=== PATIENT | female | born 1935 | race Caucasian/White ===

== ENCOUNTER → 2018-04-11 12:55 | Outpatient (CLI) | payer MEDICARE, OTHER, SELFPAY ==
--- NOTE | 2018-04-11 | OV.WND_ITS ---
Progress Note Details Patient Name: Martha Norwood Patient Number: [id number] PatientPatientDate: 04/11/2018 Clinician: Kim Saleem Physician / [employer] Building [employer] Designer: Yuri Marin SUBJECTIVE Chief Complaint This information was obtained from the patient Non-healing wound to l lower leg. Allergies codeine (Severity: Severe), latex (Reaction: rash), sulfabenzamide (Severity: Severe, Reaction: hallucinations) HPI This information was obtained from the patient 04/11/18. Seen by Dr. Marin. The patient returns to clinic with recurrence of the previously healed left lower leg venous ulcers that she feels maybe started about one month ago. She reports drainage and some pain at the site of the two ulcers and has not been on antibiotics recently nor been wearing a compression stocking despite having chronic venous hypertension in the leg. She does not report fevers or feeling otherwise. 10/12/17. Seen by Dr. Marin. The patient does not report pain or increased drainage associated with the chronic left or righ lower leg nonpressure ulcers since her last visit. The patient was started on Augmentin at her last visit for cellulitis associated with the left lower leg ulcers however reports nausea when taking it and stopped after 3 doses. She does not report a rash or other allergic type symptoms. 10/05/17. Seen by Dr. Marin. The patient reports new blisters that are pain over the anterior right lower leg associated with her chronic nonpressure ulcers. She's applying topical mupiricin but is not currently on antibiotics. 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 09/21/[address] Marin. The patient does not report pain or increased drainage associated with the chronic left or righ lower leg nonpressure ulcers since her last visit. 09/14/17. Seen by Dr. Marin. The patient does not report pain or increased drainage associated with the chronic left lower leg nonpressure ulcer however her daughter reports a new ulcer over the right lower leg she feels may be infected. She's applying topical gentamicin to the site however does not feel it's improving. 08/25/17. Seen by Dr. Marin. Patient does not report pain or increased drainage associated with the chronic left lower leg nonpressure ulcers since her last visit. She continues to apply topical gentamicin to treat the chronic staph infection also. 08/16/17. Seen by Dr. Marin. The patient does not report significant pain nor drainage associated with the chronic left lower leg non-pressure ulcer. She's applying topical gentamicin as recommended after recent wound culture grew MSSA. 08/02/17. Seen by Benedict Orta PA-C. The patient returns to our clinic with a new wound to her left anterior lower leg. She reports that she is allowing shower water into the wound and it has not improved in the 2 months it is been present. 09/07/16 Seen by Benedict Orta PA-C. The patient reports continued pain and drainage from the left arm ulcer of uncertain cause. Her referral to dermatology to assess this lesions for malignancy is in process. 08/31/16 Seen by Benedict Orta PA-C. The patient reports that her right lower leg ulcer has had no drainage since her last dressing change. She has had continued pain and drainage from her left arm ulcer. Of note, the patient does not see dermatology for yearly skin checks. 08/23/16 Seen by Benedict Orta PA-C. The patient reports that her right leg ulcer has had stable drainage since her last evaluation. Her left arm ulcer, which begain spontaneously 2 weeks ago has had stable drainage with a sharp, non-radiating pain of 1/10 being described which increases to 6/10 when debridement in attempted. She has not had any associated fever or chills. 08/16/16 Seen by Benedict Orta PA-C. The patient reports stable drainage from her right leg ulcer in the past week. She reports a new ulcer on her left arm that began spontaneously and has been continuously present for 1 week. It started as a raised dry skin abnormality and evolved into an open ulcer that has been draining clear fluid. She has not had associated trauma to the area. 08/09/16 Seen by Benedict Orta PA-C. The patient reports stable drainage from her right lower leg ulcer since her last evaluation. 08/02/16. Seen by Dr. Marin. The patient reports minimal pain and drainage associated with the chronic right lower leg non-pressure ulcer since her last visit. 07/26/16 Seen by Benedict Orta PA-C. The patient reports stable drainage from her right lower leg ulcer since her last evaluation. 07/19/16 Seen by Benedict Orta PA-C. The patient reports continued drainage from her right lower leg ulcer with no fever or chills reported. 07/12/16. Seen by Dr. Marin. The patient reports decreased drainage and pain associated with the chronic right lower leg non-pressure ulcer since her last visit and in general feels it's much smaller than at time of her last visit. Following a course of cipro she continues to apply topical gentamicin ointment to treat the recent MRSA and Pseudomonas positive wound culture. 06/28/16 Seen by Benedict Orta PA-C. The patient reports that she was not able to tolerate her oral Cipro any better than the levaquin that gave her upper GI distress. She reports decreased drainage from her right lower leg ulcer. 06/22/16 Seen by Benedict Orta PA-C. The patient reports continued drainage from her right lower leg ulcer since her last evaluation. She has not had fever or chills. She has thrown up her levaquin on 2 occasions and kept it down for the other doses but did have nausea. 06/15/16. Seen by Dr. Marin. The patient is new to our clinic and presents with a right lower leg chronic, non-pressure ulcer that started as a trauma wound after hitting her leg on a piece of furniture about 2 months ago. She reports intermittent pain and persistent drainage despite treating Pseuodmona, Staph, and Strep that were cultured from the ulcer with oral antibiotics. She does not report fevers, increased leg swelling, or feeling unwell in general and does not have a history of diabetes or report symptoms consistent with clinically significant PAD. Family History This information was obtained from the patient Cancer - Mother, Heart Disease - Father, Other - Maternal Grandparents Social History This information was obtained from the patient Never smoker, Alcohol Use - Cocktail every night, Caffeine Use - 2 cups daily, Children - 2 children, Lives in - Home alone, Marital Status - , Retired Past Medical History This information was obtained from the patient Patient has a medical history of: Arthritis Asthma Osteopenia Necrosis of left hip post pinning Chronic macrocytic anemia Gout Hypertension Hip Fracture Post traumatic osteoarthritis Hepatitis A MRSA Femer fractures Vitamin D deficiency Hyperlipidemia Surgical History This information was obtained from the patient Patient has a surgical history of: Hip Pinning Appendectomy Rhinoplasty Tonsillectomy Cataract extration Complaints and Symptoms This information was obtained from the patient Patient complains of: General Notes: I have reviewed and concur with the Review of Systems and Past Family Social History documents completed by the clinician, I have reviewed and concur with the Wound Assessment document completed by the clinician Gastrointestinal (GI): Nausea / Vomiting Integumentary (Hair/Skin/Nails): Open Sore Prior Wound History: Bleeding, Drainage, Erythema, Pain Patient denies complaints or symptoms related to: Cardiovascular (Central): Irregular heart beat Cardiovascular (Central/Peripheral): Intermittent Claudication, Lower extremity (leg) resting pain, Lower extremity (leg) swelling Constitutional Symptoms (General Health): Chills, Fever Ear/Nose/Mouth/Throat: Hearing Loss / Aid Hematologic/Lymphatic: Bleeding / Clotting Disorders, Bleeding Tendency Musculoskeletal: Assistive Devices, Muscle Weakness Neurological: Loss of Protective Sensation Prior Wound History: Malodor Psychiatric: Depression, Memory Loss Respiratory: Oxygen Use, Shortness of Breath General Notes: Up to date Medications Augmentin 875 mg-125 mg tablet oral tablet oral twice daily for 7 days for cellulitis OBJECTIVE Constitutional BP elevated; Afebrile; Alert and in no distress. Well developed. Alert. Clean appearing.. Height/Length: 66 in (167.64 cm), Weight: 129.6 lbs (58.91 kgs), BMI: 20.9, Temperature: 98.1 ?F (36.72 ?C), Pulse: 73 bpm, Respiratory Rate: 16 breaths/min, Blood Pressure: 146/64 mmHg, Pulse Oximetry: 99 %. Ears, Nose, Mouth, and Throat: No clinically significant hearing loss on informal examination. Respiratory: No respiratory distress. Even respirations and without use of accessory muscles.. Cardiovascular: 1+ left lower extremity edema. Integumentary (Hair, Skin) Mild periwound erythema with warmth; considerable overlying yellow dried drainage. Refer to appropriate clinician wound documentation for this visit; distal left lower leg ulcer extends to subcut with base partially covered with red friable granulation, remainder fibrin and slough; proximal left lower leg ulcer extends to dermis with red granular base. Wound #5 Left, Distal, Anterior Leg is a chronic Partial Thickness Atypical and has received a status of Not Healed. Initial wound encounter measurements are 6.5cm length x 5.5cm width x 0.2cm depth, with an area of 35.75 sq cm and a volume of 7.15 cubic cm. No tunneling has been noted. No sinus tract has been noted. No undermining has been noted. There is a moderate amount of sero-sanguineous drainage noted which has no odor. The patient reports a wound pain of level 0/10. The wound margin is attached. Wound bed has Yes epithelialization, No eschar, Yes slough, Yes bright red, firm granulation. The periwound skin texture is normal. The periwound skin moisture is normal. The periwound skin color is normal. The temperature of the periwound skin is WNL. Periwound skin does not exhibit signs or symptoms of infection. Local Pulse is Palpable. Wound #6 Left, Proximal, Anterior Leg is a chronic Partial Thickness Atypical and has received a status of Not Healed. Initial wound encounter measurements are 4cm length x 3cm width x 0.1cm depth, with an area of 12 sq cm and a volume of 1.2 cubic cm. No tunneling has been noted. No sinus tract has been noted. No undermining has been noted. There is a moderate amount of sero-sanguineous drainage noted which has no odor. The patient reports a wound pain of level 0/10. The wound margin is attached. Wound bed has Yes epithelialization, No eschar, Yes slough, Yes bright red, firm granulation. The periwound skin texture is normal. The periwound skin color is normal. The periwound skin exhibited: Dry/Scaly. The temperature of the periwound skin is WNL. Periwound skin does not exhibit signs or symptoms of infection. Local Pulse is Palpable. Neurological: Cranial nerves grossly intact with symmetric function normal by informal observation.. ASSESSMENT Active Problems ICD-10 (Encounter Diagnosis) L97.822 - Non-pressure chronic ulcer of other part of left lower leg with fat layer exposed (Encounter Diagnosis) L97.821 - Non-pressure chronic ulcer of other part of left lower leg limited to breakdown of skin (Encounter Diagnosis) I87.312 - Chronic venous hypertension (idiopathic) with ulcer of left lower extremity (Encounter Diagnosis) L03.116 - Cellulitis of left lower limb PROCEDURES Wound #5 Wound #5 (Atypical) is located on the left, distal, anterior leg. A skin/ subcutaneous tissue level surgical debridement with a total area debrided of 35.75 sq cm was performed by Yuri Marin MD. Subcutaneous was removed along with devitalized tissue: exudate and slough. The following instrument(s) were used: curette. Pain control was achieved using 4% Lido. A time out was conducted prior to the start of the procedure. A minimal amount of bleeding was controlled with n/a. The procedure was tolerated well with a pain level of 0 throughout and a pain level of 0 following the procedure. Post Debridement Measurements: 6.5cm length x 5.5cm width x 0.3cm depth; with an area of 35.75 sq cm and a volume of 10.725 cubic cm; Wound #6 Wound #6 (Atypical) is located on the left, proximal, anterior leg. A selective debridement with a total area debrided of 12 sq cm was performed by Yuri Marin MD. to remove devitalized tissue: exudate. The following instrument(s) were used: curette. Pain control was achieved using 4% Lido. A time out was conducted prior to the start of the procedure. A minimal amount of bleeding was controlled with n/a. The procedure was tolerated well with a pain level of 0 throughout and a pain level of 0 following the procedure. Post Debridement Measurements: 4cm length x 3cm width x 0.1cm depth; with an area of 12 sq cm and a volume of 1.2 cubic cm; Additional Information Muscle fascia or bone removed and sent to pathology?: No PLAN Wound Orders: Wound #5 Left, Distal, Anterior Leg Anesthetic Topical Xylocaine to wound bed. Cleanser Cleanse Wound: - Normal Saline in clinic. May use distilled water at home. Topical Treatments Antibiotic/Antimicrobial Ointment/Cream. - Gentamicin Dressings Primary dressing: - Bordered Foam Change Dressing: - Every other day Wound #6 Left, Proximal, Anterior Leg Anesthetic Topical Xylocaine to wound bed. Cleanser Cleanse Wound: - Normal Saline in clinic. May use distilled water at home. Topical Treatments Antibiotic/Antimicrobial Ointment/Cream. - Gentamicin Dressings Primary dressing: - Bordered Foam Change Dressing: - Every other day Additional Orders: Follow-Up Appointments Return Appointment: - - One week Other information: If you develop fever, chills, increased pain, drainage, redness or swelling please call our office. If after hours, respond to the ER. Should you experience any significant changes in your wound(s) or have any questions regarding your home care instructions please contact the wound center @ [phone]. If after hours, contact your primary care physician or go to the hospital emergency room. Scribing Attestation I attest, as the nurse, that I scribed these orders for the physician. Laboratory: Culture Wound, Culture Wound General Notes: Please clam picker antibiotics and take as prescribed. We will call with any positive wound cultures requiring a change in medication. I've reviewed the clinician's documentation and agree with the evaluation and plan as written. In addition the patient's ulcers demonstrate evidence of non-viable devitalized tissue and they will continue to benefit from sharp debridement to help promote granulation and expedite healing. Also, I've started the patient empirically on Augmentin and will adjust antibiotics pending the culture results. We'll also restart compression therapy once the infection is appropriately treated. Electronic Signature(s) Signed By: Date: Yuri Marin MD 04/12/2018 08:37:45 Entered By: Yuri Marin on 04/12/2018 08:24:25
== END ==
PROVIDERS: PCP Family Medicine; Visit Provider Internal Medicine
DX: I87.312 Chronic venous hypertension (idiopathic) with ulcer of left lower extremity (principal); L97.822 Non-pressure chronic ulcer of other part of left lower leg with fat layer exposed; L97.821 Non-pressure chronic ulcer of other part of left lower leg limited to breakdown of skin; L08.9 Local infection of the skin and subcutaneous tissue, unspecified
CPT/HCPCS: 11042; 11045; 87070; 87075; 87077; 87147; 87186; 87205; 97597

== ENCOUNTER → 2018-04-19 14:25 | Outpatient (CLI) | payer MEDICARE, OTHER, SELFPAY ==
--- NOTE | 2018-04-19 | OV.WND_ITS ---
Progress Note Details Patient Name: Martha Norwood Patient Number: [id number] PatientPatientDate: 04/19/2018 Clinician: Kim Saleem Clinician Cosigner: Luh Fry Physician / Senior Technical Project Manager: Yuri Marin SUBJECTIVE Chief Complaint This information was obtained from the patient Non-healing wound to l lower leg. Allergies codeine (Severity: Severe), latex (Reaction: rash), sulfabenzamide (Severity: Severe, Reaction: hallucinations) HPI This information was obtained from the patient 04/19/18. Seen by Dr. Marin. The patient reports some mild pain but not drainage associated with the left lower leg venous ulcers and she's completed her course of Augmentin that was treating an associated cellulitis without reporting adverse side effects. 04/11/18. Seen by Dr. Marin. The patient returns to clinic with recurrence of the previously healed left lower leg venous ulcers that she feels maybe started about one month ago. She reports drainage and some pain at the site of the two ulcers and has not been on antibiotics recently nor been wearing a compression stocking despite having chronic venous hypertension in the leg. She does not report fevers or feeling otherwise. 10/12/17. Seen by Dr. Marin. The patient does not report pain or increased drainage associated with the chronic left or righ lower leg nonpressure ulcers since her last visit. The patient was started on Augmentin at her last visit for cellulitis associated with the left lower leg ulcers however reports nausea when taking it and stopped after 3 doses. She does not report a rash or other allergic type symptoms. 10/05/17. Seen by Dr. Marin. The patient reports new blisters that are pain over the anterior right lower leg associated with her chronic nonpressure ulcers. She's applying topical mupiricin but is not currently on antibiotics. 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 09/21/[address] Marin. The patient does not report pain or increased drainage associated with the chronic left or righ lower leg nonpressure ulcers since her last visit. 09/14/17. Seen by Dr. Marin. The patient does not report pain or increased drainage associated with the chronic left lower leg nonpressure ulcer however her daughter reports a new ulcer over the right lower leg she feels may be infected. She's applying topical gentamicin to the site however does not feel it's improving. 08/25/17. Seen by Dr. Marin. Patient does not report pain or increased drainage associated with the chronic left lower leg nonpressure ulcers since her last visit. She continues to apply topical gentamicin to treat the chronic staph infection also. 08/16/17. Seen by Dr. Mrain. The patient does not report significant pain nor drainage associated with the chronic left lower leg non-pressure ulcer. She's applying topical gentamicin as recommended after recent wound culture grew MSSA. 08/02/17. Seen by Benedict Orta PA-C. The patient returns to our clinic with a new wound to her left anterior lower leg. She reports that she is allowing shower water into the wound and it has not improved in the 2 months it is been present. 09/07/16 Seen by Benedict Orta PA-C. The patient reports continued pain and drainage from the left arm ulcer of uncertain cause. Her referral to dermatology to assess this lesions for malignancy is in process. 08/31/16 Seen by Benedict Orta PA-C. The patient reports that her right lower leg ulcer has had no drainage since her last dressing change. She has had continued pain and drainage from her left arm ulcer. Of note, the patient does not see dermatology for yearly skin checks. 08/23/16 Seen by Benedict Orta PA-C. The patient reports that her right leg ulcer has had stable drainage since her last evaluation. Her left arm ulcer, which begain spontaneously 2 weeks ago has had stable drainage with a sharp, non-radiating pain of 1/10 being described which increases to 6/10 when debridement in attempted. She has not had any associated fever or chills. 08/16/16 Seen by Benedict Orta PA-C. The patient reports stable drainage from her right leg ulcer in the past week. She reports a new ulcer on her left arm that began spontaneously and has been continuously present for 1 week. It started as a raised dry skin abnormality and evolved into an open ulcer that has been draining clear fluid. She has not had associated trauma to the area. 08/09/16 Seen by Benedict Orta PA-C. The patient reports stable drainage from her right lower leg ulcer since her last evaluation. 08/02/16. Seen by Dr. Marin. The patient reports minimal pain and drainage associated with the chronic right lower leg non-pressure ulcer since her last visit. 07/26/16 Seen by Benedict Orta PA-C. The patient reports stable drainage from her right lower leg ulcer since her last evaluation. 07/19/16 Seen by Benedict Orta PA-C. The patient reports continued drainage from her right lower leg ulcer with no fever or chills reported. 07/12/16. Seen by Dr. Marin. The patient reports decreased drainage and pain associated with the chronic right lower leg non-pressure ulcer since her last visit and in general feels it's much smaller than at time of her last visit. Following a course of cipro she continues to apply topical gentamicin ointment to treat the recent MRSA and Pseudomonas positive wound culture. 06/28/16 Seen by Benedict Orta PA-C. The patient reports that she was not able to tolerate her oral Cipro any better than the levaquin that gave her upper GI distress. She reports decreased drainage from her right lower leg ulcer. 06/22/16 Seen by Benedict Orta PA-C. The patient reports continued drainage from her right lower leg ulcer since her last evaluation. She has not had fever or chills. She has thrown up her levaquin on 2 occasions and kept it down for the other doses but did have nausea. 06/15/16. Seen by Dr. Marin. The patient is new to our clinic and presents with a right lower leg chronic, non-pressure ulcer that started as a trauma wound after hitting her leg on a piece of furniture about 2 months ago. She reports intermittent pain and persistent drainage despite treating Pseuodmona, Staph, and Strep that were cultured from the ulcer with oral antibiotics. She does not report fevers, increased leg swelling, or feeling unwell in general and does not have a history of diabetes or report symptoms consistent with clinically significant PAD. Past Medical History This information was obtained from the patient Patient has a medical history of: Arthritis Asthma Osteopenia Necrosis of left hip post pinning Chronic macrocytic anemia Gout Hypertension Hip Fracture Post traumatic osteoarthritis Hepatitis A MRSA Femer fractures Vitamin D deficiency Hyperlipidemia Complaints and Symptoms This information was obtained from the patient Patient complains of: General Notes: I have reviewed and concur with the Review of Systems and Past Family Social History documents completed by the clinician, I have reviewed and concur with the Wound Assessment document completed by the clinician Gastrointestinal (GI): Nausea / Vomiting Integumentary (Hair/Skin/Nails): Open Sore Prior Wound History: Bleeding, Drainage, Erythema, Pain Patient denies complaints or symptoms related to: Cardiovascular (Central): Irregular heart beat Cardiovascular (Central/Peripheral): Intermittent Claudication, Lower extremity (leg) resting pain, Lower extremity (leg) swelling Constitutional Symptoms (General Health): Chills, Fever Ear/Nose/Mouth/Throat: Hearing Loss / Aid Hematologic/Lymphatic: Bleeding / Clotting Disorders, Bleeding Tendency Musculoskeletal: Assistive Devices, Muscle Weakness Neurological: Loss of Protective Sensation Prior Wound History: Malodor Psychiatric: Depression, Memory Loss Respiratory: Oxygen Use, Shortness of Breath OBJECTIVE Constitutional BP elevated; Afebrile; Alert and in no distress. Well developed. Alert. Clean appearing.. Height/Length: 66 in (167.64 cm), Weight: 129.6 lbs (58.91 kgs), BMI: 20.9, Temperature: 99 ?F (37.22 ?C), Pulse: 75 bpm, Respiratory Rate: 16 breaths/min, Blood Pressure: 141/75 mmHg, Pulse Oximetry: 95 %. Ears, Nose, Mouth, and Throat: Mild hearing deficit. Respiratory: No respiratory distress. Even respirations and without use of accessory muscles.. Cardiovascular: 1+ left lower extremity edema. Integumentary (Hair, Skin) Mild periwound erythema with warmth. Refer to appropriate clinician wound documentation for this visit. Wound #5 Left, Distal, Anterior Leg is a chronic Partial Thickness Atypical and has received a status of Not Healed. Subsequent wound encounter measurements are 0.3cm length x 0.2cm width x 0.2cm depth, with an area of 0.06 sq cm and a volume of 0.012 cubic cm. No tunneling has been noted. No sinus tract has been noted. No undermining has been noted. There is a moderate amount of sero-sanguineous drainage noted which has no odor. The patient reports a wound pain of level 0/10. The wound margin is attached. Wound bed has Yes epithelialization, No eschar, Yes slough, Yes bright red, firm granulation. The periwound skin texture is normal. The periwound skin moisture is normal. The periwound skin color is normal. The temperature of the periwound skin is WNL. Periwound skin does not exhibit signs or symptoms of infection. Local Pulse is Palpable. General Notes: Scattered open areas Wound #6 Left, Proximal, Anterior Leg is a chronic Partial Thickness Atypical and has received a status of Not Healed. Subsequent wound encounter measurements are 0.1cm length x 0.1cm width x 0.1cm depth, with an area of 0.01 sq cm and a volume of 0.001 cubic cm. No tunneling has been noted. No sinus tract has been noted. No undermining has been noted. There is a moderate amount of sero-sanguineous drainage noted which has no odor. The patient reports a wound pain of level 0/10. The wound margin is attached. Wound bed has Yes epithelialization, No eschar, Yes slough, Yes bright red, firm granulation. The periwound skin texture is normal. The periwound skin color is normal. The periwound skin exhibited: Dry/Scaly. The temperature of the periwound skin is WNL. Periwound skin does not exhibit signs or symptoms of infection. Local Pulse is Palpable. Neurological: Cranial nerves grossly intact with symmetric function normal by informal observation.. ASSESSMENT Active Problems ICD-10 (Encounter Diagnosis) L97.821 - Non-pressure chronic ulcer of other part of left lower leg limited to breakdown of skin (Encounter Diagnosis) I87.312 - Chronic venous hypertension (idiopathic) with ulcer of left lower extremity (Encounter Diagnosis) L03.116 - Cellulitis of left lower limb PROCEDURES Wound #5 Wound #5 (Atypical) is located on the left, distal, anterior leg. A selective debridement with a total area debrided of 0.06 sq cm was performed by Yuri Marin MD. to remove devitalized tissue: exudate and slough. Pain control was achieved using 4% Lido. A time out was conducted prior to the start of the procedure. Post Debridement Measurements : 0.3cm length x 0.2cm width x 0.2cm depth; with an area of 0.06 sq cm and a volume of 0.012 cubic cm; PLAN Wound Orders: Wound #5 Left, Distal, Anterior Leg Anesthetic Topical Xylocaine to wound bed. Cleanser Cleanse Wound: - Normal Saline in clinic. May use distilled water at home. Dressings Primary dressing: - Bordered Foam Change Dressing: - Every other day Wound #6 Left, Proximal, Anterior Leg Anesthetic Topical Xylocaine to wound bed. Cleanser Cleanse Wound: - Normal Saline in clinic. May use distilled water at home. Dressings Primary dressing: - Bordered Foam Change Dressing: - Every other day Additional Orders: Follow-Up Appointments Return Appointment: - - 10 days Other information: If you develop fever, chills, increased pain, drainage, redness or swelling please call our office. If after hours, respond to the ER. Should you experience any significant changes in your wound(s) or have any questions regarding your home care instructions please contact the wound center @ [phone]. If after hours, contact your primary care physician or go to the hospital emergency room. Scribing Attestation I attest, as the nurse, that I scribed these orders for the physician. Medications prescribed: Augmentin - oral 875 mg-125 mg tablet twice daily for 7 days for cellulitis starting 04/19/2018 General Notes: Continue oral antibiotics. We will send a new prescription in today. I've reviewed the clinician's documentation and agree with the evaluation and plan as written. Also, I've continued the patient on another 7 days of Augmentin for refractory cellulitis of the left lower leg. Electronic Signature(s) Signed By: Date: Yuri Marin MD 04/20/2018 06:27:44 Entered By: Yuri Marin on 04/20/2018 06:20:12
== END ==
PROVIDERS: PCP Family Medicine; Visit Provider Internal Medicine
DX: I87.312 Chronic venous hypertension (idiopathic) with ulcer of left lower extremity (principal); L97.821 Non-pressure chronic ulcer of other part of left lower leg limited to breakdown of skin; L03.116 Cellulitis of left lower limb
CPT/HCPCS: 97597

== ENCOUNTER → 2018-05-11 13:03 | Outpatient (CLI) | payer MEDICARE, OTHER, SELFPAY ==
--- NOTE | 2018-05-11 | OV.WND_ITS ---
Progress Note Details Patient Name: Martha Norwood Patient Number: [id number] PatientPatientDate: 05/11/2018 Clinician: Lexi Valencia Clinician Cosigner: Luh Fry Physician / [employer] Worker: Yuri Marin SUBJECTIVE Chief Complaint This information was obtained from the patient Non-healing wounds to left lower leg. Allergies codeine (Severity: Severe), latex (Reaction: rash), sulfabenzamide (Severity: Severe, Reaction: hallucinations) HPI This information was obtained from the patient 05/11/18. Seen by Dr. Marin. The patient continues to report some mild pain but no drainage associated with the left lower leg venous ulcer and she's applying topical gentamicin to treat the chronic and recurrent Staph infection. 04/19/18. Seen by Dr. Marin. The patient reports some mild pain but not drainage associated with the left lower leg venous ulcers and she's completed her course of Augmentin that was treating an associated cellulitis without reporting adverse side effects. 04/11/18. Seen by Dr. Marin. The patient returns to clinic with recurrence of the previously healed left lower leg venous ulcers that she feels maybe started about one month ago. She reports drainage and some pain at the site of the two ulcers and has not been on antibiotics recently nor been wearing a compression stocking despite having chronic venous hypertension in the leg. She does not report fevers or feeling otherwise. 10/12/17. Seen by Dr. Marin. The patient does not report pain or increased drainage associated with the chronic left or righ lower leg nonpressure ulcers since her last visit. The patient was started on Augmentin at her last visit for cellulitis associated with the left lower leg ulcers however reports nausea when taking it and stopped after 3 doses. She does not report a rash or other allergic type symptoms. 10/05/17. Seen by Dr. Marin. The patient reports new blisters that are pain over the anterior right lower leg associated with her chronic nonpressure ulcers. She's applying topical mupiricin but is not currently on antibiotics. 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 09/21/[address] Marin. The patient does not report pain or increased drainage associated with the chronic left or righ lower leg nonpressure ulcers since her last visit. 09/14/17. Seen by Dr. Marin. The patient does not report pain or increased drainage associated with the chronic left lower leg nonpressure ulcer however her daughter reports a new ulcer over the right lower leg she feels may be infected. She's applying topical gentamicin to the site however does not feel it's improving. 08/25/17. Seen by Dr. Marin. Patient does not report pain or increased drainage associated with the chronic left lower leg nonpressure ulcers since her last visit. She continues to apply topical gentamicin to treat the chronic staph infection also. 08/16/17. Seen by Dr. Marin. The patient does not report significant pain nor drainage associated with the chronic left lower leg non-pressure ulcer. She's applying topical gentamicin as recommended after recent wound culture grew MSSA. 08/02/17. Seen by Benedict Orta PA-C. The patient returns to our clinic with a new wound to her left anterior lower leg. She reports that she is allowing shower water into the wound and it has not improved in the 2 months it is been present. 09/07/16 Seen by Benedict Orta PA-C. The patient reports continued pain and drainage from the left arm ulcer of uncertain cause. Her referral to dermatology to assess this lesions for malignancy is in process. 08/31/16 Seen by Benedict Orta PA-C. The patient reports that her right lower leg ulcer has had no drainage since her last dressing change. She has had continued pain and drainage from her left arm ulcer. Of note, the patient does not see dermatology for yearly skin checks. 08/23/16 Seen by Benedict Orta PA-C. The patient reports that her right leg ulcer has had stable drainage since her last evaluation. Her left arm ulcer, which begain spontaneously 2 weeks ago has had stable drainage with a sharp, non-radiating pain of 1/10 being described which increases to 6/10 when debridement in attempted. She has not had any associated fever or chills. 08/16/16 Seen by Benedict Orat PA-C. The patient reports stable drainage from her right leg ulcer in the past week. She reports a new ulcer on her left arm that began spontaneously and has been continuously present for 1 week. It started as a raised dry skin abnormality and evolved into an open ulcer that has been draining clear fluid. She has not had associated trauma to the area. 08/09/16 Seen by Benedict Orta PA-C. The patient reports stable drainage from her right lower leg ulcer since her last evaluation. 08/02/16. Seen by Dr. Marin. The patient reports minimal pain and drainage associated with the chronic right lower leg non-pressure ulcer since her last visit. 07/26/16 Seen by Benedict Orta PA-C. The patient reports stable drainage from her right lower leg ulcer since her last evaluation. 07/19/16 Seen by Benedict Orta PA-C. The patient reports continued drainage from her right lower leg ulcer with no fever or chills reported. 07/12/16. Seen by Dr. Marin. The patient reports decreased drainage and pain associated with the chronic right lower leg non-pressure ulcer since her last visit and in general feels it's much smaller than at time of her last visit. Following a course of cipro she continues to apply topical gentamicin ointment to treat the recent MRSA and Pseudomonas positive wound culture. 06/28/16 Seen by Benedict Orta PA-C. The patient reports that she was not able to tolerate her oral Cipro any better than the levaquin that gave her upper GI distress. She reports decreased drainage from her right lower leg ulcer. 06/22/16 Seen by Benedict Orta PA-C. The patient reports continued drainage from her right lower leg ulcer since her last evaluation. She has not had fever or chills. She has thrown up her levaquin on 2 occasions and kept it down for the other doses but did have nausea. 06/15/16. Seen by Dr. Marin. The patient is new to our clinic and presents with a right lower leg chronic, non-pressure ulcer that started as a trauma wound after hitting her leg on a piece of furniture about 2 months ago. She reports intermittent pain and persistent drainage despite treating Pseuodmona, Staph, and Strep that were cultured from the ulcer with oral antibiotics. She does not report fevers, increased leg swelling, or feeling unwell in general and does not have a history of diabetes or report symptoms consistent with clinically significant PAD. Past Medical History This information was obtained from the patient Patient has a medical history of: Arthritis Asthma Osteopenia Necrosis of left hip post pinning Chronic macrocytic anemia Gout Hypertension Hip Fracture Post traumatic osteoarthritis Hepatitis A MRSA Femer fractures Vitamin D deficiency Hyperlipidemia Complaints and Symptoms This information was obtained from the patient Patient complains of: General Notes: I have reviewed and concur with the Review of Systems and Past Family Social History documents completed by the clinician, I have reviewed and concur with the Wound Assessment document completed by the clinician Gastrointestinal (GI): Nausea / Vomiting Integumentary (Hair/Skin/Nails): Open Sore Prior Wound History: Bleeding, Drainage, Erythema, Pain Patient denies complaints or symptoms related to: Cardiovascular (Central): Irregular heart beat Cardiovascular (Central/Peripheral): Intermittent Claudication, Lower extremity (leg) resting pain, Lower extremity (leg) swelling Constitutional Symptoms (General Health): Chills, Fever Ear/Nose/Mouth/Throat: Hearing Loss / Aid Hematologic/Lymphatic: Bleeding / Clotting Disorders, Bleeding Tendency Musculoskeletal: Assistive Devices, Muscle Weakness Neurological: Loss of Protective Sensation Prior Wound History: Malodor Psychiatric: Depression, Memory Loss Respiratory: Oxygen Use, Shortness of Breath OBJECTIVE Constitutional BP elevated; Afebrile; Alert and in no distress. Well developed. Alert. Clean appearing.. Height/Length: 66 in (167.64 cm), Weight: 126.1 lbs (57.32 kgs), BMI: 20.4, Temperature: 97.8 ?F (36.56 ?C), Pulse: 64 bpm, Respiratory Rate: 18 breaths/min, Blood Pressure: 147/80 mmHg, Pulse Oximetry: 96 %. Ears, Nose, Mouth, and Throat: No clinically significant hearing loss on informal examination. Respiratory: No respiratory distress. Even respirations and without use of accessory muscles.. Cardiovascular: 1+ left lower extremity edema. Integumentary (Hair, Skin) Moderate periwound erythema without warmth. Refer to appropriate clinician wound documentation for this visit; left lower leg ulcer extends to dermis with base partially covered with pink granulation, remainder fibrin and slough. Wound #5 Left, Distal, Anterior Leg is a chronic Partial Thickness Atypical and has received a status of Not Healed. Subsequent wound encounter measurements are 0.3cm length x 0.4cm width x 0.1cm depth, with an area of 0.12 sq cm and a volume of 0.012 cubic cm. No tunneling has been noted. No sinus tract has been noted. No undermining has been noted. There is a moderate amount of serosanguineous drainage noted which has no odor. The patient reports a wound pain of level 0/10. The wound margin is attached. Wound bed has Yes epithelialization, No eschar, Yes slough, Yes bright red, firm granulation. The periwound skin texture is normal. The periwound skin moisture is normal. The periwound skin color is normal. The temperature of the periwound skin is WNL. Periwound skin does not exhibit signs or symptoms of infection. Local Pulse is Palpable. Wound #6 Left, Proximal, Anterior Leg is a chronic Partial Thickness Atypical and has received a status of Not Healed. Subsequent wound encounter measurements are 0.1cm length x 0.1cm width x 0.1cm depth, with an area of 0.01 sq cm and a volume of 0.001 cubic cm. No tunneling has been noted. No sinus tract has been noted. No undermining has been noted. There is a small amount of serosanguineous drainage noted which has no odor. The patient reports a wound pain of level 0/10. The wound margin is attached. Wound bed has Yes epithelialization, No eschar, No slough, No granulation. The periwound skin texture is normal. The periwound skin color is normal. The periwound skin exhibited: Dry/Scaly. The periwound skin did not exhibit: Moist, Maceration. The temperature of the periwound skin is WNL. Periwound skin does not exhibit signs or symptoms of infection. Local Pulse is Palpable. Neurological: Cranial nerves grossly intact with symmetric function normal by informal observation.. ASSESSMENT Active Problems ICD-10 (Encounter Diagnosis) L97.821 - Non-pressure chronic ulcer of other part of left lower leg limited to breakdown of skin (Encounter Diagnosis) I87.312 - Chronic venous hypertension (idiopathic) with ulcer of left lower extremity (Encounter Diagnosis) B95.7 - Other staphylococcus as the cause of diseases classified elsewhere PLAN Wound Orders: Wound #5 Left, Distal, Anterior Leg Anesthetic Topical Xylocaine to wound bed. - In clinic. Cleanser Cleanse Wound: - Normal Saline in clinic. May use distilled water at home. Topical Treatments Antibiotic/Antimicrobial Ointment/Cream. - Gentamicin ointment. Dressings Primary dressing: - Bordered Foam. Change Dressing: - Every three days. Wound #6 Left, Proximal, Anterior Leg Anesthetic Topical Xylocaine to wound bed. - In clinic. Cleanser Cleanse Wound: - Normal Saline in clinic. May use distilled water at home. Dressings Primary dressing: - Bordered Foam. Change Dressing: - Every three days. Additional Orders: Follow-Up Appointments Return Appointment: - - Two weeks. Other information: If you develop fever, chills, increased pain, drainage, redness or swelling please call our office. If after hours, respond to the ER. Should you experience any significant changes in your wound(s) or have any questions regarding your home care instructions please contact the wound center @ [phone]. If after hours, contact your primary care physician or go to the hospital emergency room. Scribing Attestation I attest, as the nurse, that I scribed these orders for the physician. Laboratory: Culture Wound I've reviewed the clinician's documentation and agree with the evaluation and plan as written. Also, I've cultured the drainage from the ulcer and will adjust antibiotics accordingly. Electronic Signature(s) Signed By: Date: Yuri Marin MD 05/12/2018 09:41:06 Entered By: Yuri Marin on 05/12/2018 08:48:48
== END ==
PROVIDERS: PCP Family Medicine; Visit Provider Internal Medicine
DX: I87.312 Chronic venous hypertension (idiopathic) with ulcer of left lower extremity (principal); L97.821 Non-pressure chronic ulcer of other part of left lower leg limited to breakdown of skin; B95.7 Other staphylococcus as the cause of diseases classified elsewhere
CPT/HCPCS: 87070; 87075; 87077; 87147; 87205; 99212

== ENCOUNTER → 2018-05-25 13:59 | Outpatient (CLI) | payer MEDICARE, OTHER, SELFPAY ==
--- NOTE | 2018-05-25 | OV.WND_ITS ---
Progress Note Details Patient Name: Martha Norwood Patient Number: [id number] PatientPatientDate: 05/25/2018 Clinician: Mindy Townsend Clinician Cosigner: Luh Fry Physician / High School Counselor: Yuri Marin SUBJECTIVE Chief Complaint This information was obtained from the patient Non-healing wounds to left lower leg. Allergies codeine (Severity: Severe), latex (Reaction: rash), sulfabenzamide (Severity: Severe, Reaction: hallucinations) HPI This information was obtained from the patient 05/25/18. Seen by Dr. Marin. The patient continues to report some mild pain but no drainage associated with the left lower leg venous ulcer since her last visit. 05/11/18. Seen by Dr. Marin. The patient continues to report some mild pain but no drainage associated with the left lower leg venous ulcer and she's applying topical gentamicin to treat the chronic and recurrent Staph infection. 04/19/18. Seen by Dr. Marin. The patient reports some mild pain but not drainage associated with the left lower leg venous ulcers and she's completed her course of Augmentin that was treating an associated cellulitis without reporting adverse side effects. 04/11/18. Seen by Dr. Marin. The patient returns to clinic with recurrence of the previously healed left lower leg venous ulcers that she feels maybe started about one month ago. She reports drainage and some pain at the site of the two ulcers and has not been on antibiotics recently nor been wearing a compression stocking despite having chronic venous hypertension in the leg. She does not report fevers or feeling otherwise. 10/12/17. Seen by Dr. Marin. The patient does not report pain or increased drainage associated with the chronic left or righ lower leg nonpressure ulcers since her last visit. The patient was started on Augmentin at her last visit for cellulitis associated with the left lower leg ulcers however reports nausea when taking it and stopped after 3 doses. She does not report a rash or other allergic type symptoms. 10/05/17. Seen by Dr. Marin. The patient reports new blisters that are pain over the anterior right lower leg associated with her chronic nonpressure ulcers. She's applying topical mupiricin but is not currently on antibiotics. 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 09/21/[address] Marin. The patient does not report pain or increased drainage associated with the chronic left or righ lower leg nonpressure ulcers since her last visit. 09/14/17. Seen by Dr. Marin. The patient does not report pain or increased drainage associated with the chronic left lower leg nonpressure ulcer however her daughter reports a new ulcer over the right lower leg she feels may be infected. She's applying topical gentamicin to the site however does not feel it's improving. 08/25/17. Seen by Dr. Marin. Patient does not report pain or increased drainage associated with the chronic left lower leg nonpressure ulcers since her last visit. She continues to apply topical gentamicin to treat the chronic staph infection also. 08/16/17. Seen by Dr. Marin. The patient does not report significant pain nor drainage associated with the chronic left lower leg non-pressure ulcer. She's applying topical gentamicin as recommended after recent wound culture grew MSSA. 08/02/17. Seen by Benedict Orta PA-C. The patient returns to our clinic with a new wound to her left anterior lower leg. She reports that she is allowing shower water into the wound and it has not improved in the 2 months it is been present. 09/07/16 Seen by Benedict Orta PA-C. The patient reports continued pain and drainage from the left arm ulcer of uncertain cause. Her referral to dermatology to assess this lesions for malignancy is in process. 08/31/16 Seen by Benedict Orta PA-C. The patient reports that her right lower leg ulcer has had no drainage since her last dressing change. She has had continued pain and drainage from her left arm ulcer. Of note, the patient does not see dermatology for yearly skin checks. 08/23/16 Seen by Benedict Orta PA-C. The patient reports that her right leg ulcer has had stable drainage since her last evaluation. Her left arm ulcer, which begain spontaneously 2 weeks ago has had stable drainage with a sharp, non-radiating pain of 1/10 being described which increases to 6/10 when debridement in attempted. She has not had any associated fever or chills. 08/16/16 Seen by Benedict Orta PA-C. The patient reports stable drainage from her right leg ulcer in the past week. She reports a new ulcer on her left arm that began spontaneously and has been continuously present for 1 week. It started as a raised dry skin abnormality and evolved into an open ulcer that has been draining clear fluid. She has not had associated trauma to the area. 08/09/16 Seen by Benedict Orta PA-C. The patient reports stable drainage from her right lower leg ulcer since her last evaluation. 08/02/16. Seen by Dr. Marin. The patient reports minimal pain and drainage associated with the chronic right lower leg non-pressure ulcer since her last visit. 07/26/16 Seen by Benedict Orta PA-C. The patient reports stable drainage from her right lower leg ulcer since her last evaluation. 07/19/16 Seen by Benedict Orta PA-C. The patient reports continued drainage from her right lower leg ulcer with no fever or chills reported. 07/12/16. Seen by Dr. Marin. The patient reports decreased drainage and pain associated with the chronic right lower leg non-pressure ulcer since her last visit and in general feels it's much smaller than at time of her last visit. Following a course of cipro she continues to apply topical gentamicin ointment to treat the recent MRSA and Pseudomonas positive wound culture. 06/28/16 Seen by Benedict Orta PA-C. The patient reports that she was not able to tolerate her oral Cipro any better than the levaquin that gave her upper GI distress. She reports decreased drainage from her right lower leg ulcer. 06/22/16 Seen by Benedict Orta PA-C. The patient reports continued drainage from her right lower leg ulcer since her last evaluation. She has not had fever or chills. She has thrown up her levaquin on 2 occasions and kept it down for the other doses but did have nausea. 06/15/16. Seen by Dr. Marin. The patient is new to our clinic and presents with a right lower leg chronic, non-pressure ulcer that started as a trauma wound after hitting her leg on a piece of furniture about 2 months ago. She reports intermittent pain and persistent drainage despite treating Pseuodmona, Staph, and Strep that were cultured from the ulcer with oral antibiotics. She does not report fevers, increased leg swelling, or feeling unwell in general and does not have a history of diabetes or report symptoms consistent with clinically significant PAD. Past Medical History This information was obtained from the patient Patient has a medical history of: Arthritis Asthma Osteopenia Necrosis of left hip post pinning Chronic macrocytic anemia Gout Hypertension Hip Fracture Post traumatic osteoarthritis Hepatitis A MRSA Femer fractures Vitamin D deficiency Hyperlipidemia Complaints and Symptoms This information was obtained from the patient Patient complains of: General Notes: I have reviewed and concur with the Review of Systems and Past Family Social History documents completed by the clinician, I have reviewed and concur with the Wound Assessment document completed by the clinician Gastrointestinal (GI): Nausea / Vomiting Integumentary (Hair/Skin/Nails): Open Sore Prior Wound History: Bleeding, Drainage, Erythema, Pain Patient denies complaints or symptoms related to: Cardiovascular (Central): Irregular heart beat Cardiovascular (Central/Peripheral): Intermittent Claudication, Lower extremity (leg) resting pain, Lower extremity (leg) swelling Constitutional Symptoms (General Health): Chills, Fever Ear/Nose/Mouth/Throat: Hearing Loss / Aid Hematologic/Lymphatic: Bleeding / Clotting Disorders, Bleeding Tendency Musculoskeletal: Assistive Devices, Muscle Weakness Neurological: Loss of Protective Sensation Prior Wound History: Malodor Psychiatric: Depression, Memory Loss Respiratory: Oxygen Use, Shortness of Breath OBJECTIVE Constitutional BP elevated; Afebrile; Alert and in no distress. Well developed. Alert. Clean appearing.. Height/Length: 66 in (167.64 cm), Weight: 126.1 lbs (57.32 kgs), BMI: 20.4, Temperature: 98.2 ?F (36.78 ?C), Pulse: 78 bpm, Respiratory Rate: 18 breaths/min, Blood Pressure: 159/63 mmHg, Pulse Oximetry: 96 %. Respiratory: No respiratory distress. Even respirations and without use of accessory muscles.. Cardiovascular: 1+ left lower extremity edema. Integumentary (Hair, Skin) Moderate periwound erythema without warmth; tender to debridement. Refer to appropriate clinician wound documentation for this visit; blistering noted in the periwound area/s. Wound #5 Left, Distal, Anterior Leg is a chronic Partial Thickness Atypical and has received a status of Not Healed. Subsequent wound encounter measurements are 0.1cm length x 0.1cm width x 0.1cm depth, with an area of 0.01 sq cm and a volume of 0.001 cubic cm. No tunneling has been noted. No sinus tract has been noted. No undermining has been noted. There is a moderate amount of serosanguineous drainage noted which has no odor. The patient reports a wound pain of level 0/10. The wound margin is attached. Wound bed has Yes epithelialization, No eschar, No slough, No granulation. The periwound skin texture is normal. The periwound skin moisture is normal. The periwound skin color is normal. The temperature of the periwound skin is WNL. Periwound skin presents with s/s of infection. Confirmation Description and Treatment Plan is: Signs and Symptoms Present. Local Pulse is Palpable. Wound #6 Left, Proximal, Anterior Leg is a chronic Partial Thickness Atypical and has received a status of Not Healed. Subsequent wound encounter measurements are 0.1cm length x 0.1cm width x 0.1cm depth, with an area of 0.01 sq cm and a volume of 0.001 cubic cm. No tunneling has been noted. No sinus tract has been noted. No undermining has been noted. There is a moderate amount of serosanguineous drainage noted which has no odor. The patient reports a wound pain of level 0/10. The wound margin is attached. Wound bed has Yes epithelialization, No eschar, No slough, No granulation. The periwound skin texture is normal. The periwound skin color is normal. The periwound skin exhibited: Dry/Scaly. The periwound skin did not exhibit: Moist, Maceration. The temperature of the periwound skin is WNL. Periwound skin does not exhibit signs or symptoms of infection. Local Pulse is Palpable. Neurological: Cranial nerves grossly intact with symmetric function normal by informal observation.. ASSESSMENT Active Problems ICD-10 (Encounter Diagnosis) L97.821 - Non-pressure chronic ulcer of other part of left lower leg limited to breakdown of skin (Encounter Diagnosis) I87.312 - Chronic venous hypertension (idiopathic) with ulcer of left lower extremity (Encounter Diagnosis) L08.9 - Local infection of the skin and subcutaneous tissue, unspecified PROCEDURES Wound #5 Wound #5 (Atypical) is located on the left, distal, anterior leg. A selective debridement with a total area debrided of 0.01 sq cm was performed by Yuri Marin MD. dryed exuate was removed along with devitalized tissue: exudate. The following instrument(s) were used: curette.A time out was conducted prior to the start of the procedure. No bleeding occurred. The patient tolerated the procedure with a pain level of 0 throughout and a pain level of 0 following the procedure. Post Debridement Measurements: 0.1cm length x 0.1cm width x 0.1cm depth; with an area of 0.01 sq cm and a volume of 0.001 cubic cm; PLAN Wound Orders: Wound #5 Left, Distal, Anterior Leg Cleanser Cleanse Wound: - Normal Saline or distilled water May Shower. - But keep wounds and dressings dry Dressings Pack wound: - Triple Antibiotic to wound bed. Primary dressing: - Allevyn Life and Allevyn gentle border foam Follow-Up Appointments Return Appointment: - - One week Wound #6 Left, Proximal, Anterior Leg Cleanser Cleanse Wound: - Normal Saline or distilled water May Shower. - But keep wounds and dressings dry Dressings Pack wound: - Triple Antibiotic to wound bed. Primary dressing: - Allevyn Life and Allevyn gentle border foam Follow-Up Appointments Return Appointment: - - One week Laboratory: Culture Wound - Left leg. Medications prescribed: Augmentin - oral 875 mg-125 mg tablet twice daily for 7 days for cellulitis starting 05/25/2018 General Notes: Start Antibiotics. I've reviewed the clinician's documentation and agree with the evaluation and plan as written. In addition, the patient's ulcer demonstrates evidence of non-viable devitalized tissue which will continue to benefit from sharp debridement to help promote granulation and expedite healing. Also, I've started the patient again on Augmentin for refractory cellulitis associated with the left lower leg venous ulcer. Electronic Signature(s) Signed By: Date: Yuri Marin MD 05/26/2018 06:31:21 Entered By: Yuri Marin on 05/26/2018 06:12:17
== END ==
PROVIDERS: PCP Family Medicine; Visit Provider Internal Medicine
DX: I87.312 Chronic venous hypertension (idiopathic) with ulcer of left lower extremity (principal); L97.821 Non-pressure chronic ulcer of other part of left lower leg limited to breakdown of skin; L03.116 Cellulitis of left lower limb
CPT/HCPCS: 87070; 87075; 87077; 87147; 87205; 97597

== ENCOUNTER → 2018-06-01 13:28 | Outpatient (CLI) | payer MEDICARE, OTHER, SELFPAY ==
--- NOTE | 2018-06-01 | OV.WND_ITS ---
Progress Note Details Patient Name: Martha Norwood Patient Number: [id number] PatientPatientDate: 06/01/2018 Clinician: Mady Rodriguez Clinician Cosigner: Kim Saleem Physician / Stock Fitter: Yuri Marin SUBJECTIVE Chief Complaint This information was obtained from the patient Non-healing wounds to left lower leg. Allergies codeine (Severity: Severe), latex (Reaction: rash), sulfabenzamide (Severity: Severe, Reaction: hallucinations) HPI This information was obtained from the patient 06/01/18. Seen by Dr. Marin. The patient continues to report some mild drainage associated with the left lower leg venous ulcer since her last visit and she continues on Augmention without reporting adverse side effects for associated refractory cellulitis. 05/25/18. Seen by Dr. Marin. The patient continues to report some mild pain but no drainage associated with the left lower leg venous ulcer since her last visit. 05/11/18. Seen by Dr. Marin. The patient continues to report some mild pain but no drainage associated with the left lower leg venous ulcer and she's applying topical gentamicin to treat the chronic and recurrent Staph infection. 04/19/18. Seen by Dr. Marin. The patient reports some mild pain but not drainage associated with the left lower leg venous ulcers and she's completed her course of Augmentin that was treating an associated cellulitis without reporting adverse side effects. 04/11/18. Seen by Dr. Marin. The patient returns to clinic with recurrence of the previously healed left lower leg venous ulcers that she feels maybe started about one month ago. She reports drainage and some pain at the site of the two ulcers and has not been on antibiotics recently nor been wearing a compression stocking despite having chronic venous hypertension in the leg. She does not report fevers or feeling otherwise. 10/12/17. Seen by Dr. Marin. The patient does not report pain or increased drainage associated with the chronic left or righ lower leg nonpressure ulcers since her last visit. The patient was started on Augmentin at her last visit for cellulitis associated with the left lower leg ulcers however reports nausea when taking it and stopped after 3 doses. She does not report a rash or other allergic type symptoms. 10/05/17. Seen by Dr. Marin. The patient reports new blisters that are pain over the anterior right lower leg associated with her chronic nonpressure ulcers. She's applying topical mupiricin but is not currently on antibiotics. 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 09/21/[address] Marin. The patient does not report pain or increased drainage associated with the chronic left or righ lower leg nonpressure ulcers since her last visit. 09/14/17. Seen by Dr. Marin. The patient does not report pain or increased drainage associated with the chronic left lower leg nonpressure ulcer however her daughter reports a new ulcer over the right lower leg she feels may be infected. She's applying topical gentamicin to the site however does not feel it's improving. 08/25/17. Seen by Dr. Marin. Patient does not report pain or increased drainage associated with the chronic left lower leg nonpressure ulcers since her last visit. She continues to apply topical gentamicin to treat the chronic staph infection also. 08/16/17. Seen by Dr. Marin. The patient does not report significant pain nor drainage associated with the chronic left lower leg non-pressure ulcer. She's applying topical gentamicin as recommended after recent wound culture grew MSSA. 08/02/17. Seen by Benedict Orta PA-C. The patient returns to our clinic with a new wound to her left anterior lower leg. She reports that she is allowing shower water into the wound and it has not improved in the 2 months it is been present. 09/07/16 Seen by Benedict Orta PA-C. The patient reports continued pain and drainage from the left arm ulcer of uncertain cause. Her referral to dermatology to assess this lesions for malignancy is in process. 08/31/16 Seen by Benedict Orta PA-C. The patient reports that her right lower leg ulcer has had no drainage since her last dressing change. She has had continued pain and drainage from her left arm ulcer. Of note, the patient does not see dermatology for yearly skin checks. 08/23/16 Seen by Benedict Orta PA-C. The patient reports that her right leg ulcer has had stable drainage since her last evaluation. Her left arm ulcer, which begain spontaneously 2 weeks ago has had stable drainage with a sharp, non-radiating pain of 1/10 being described which increases to 6/10 when debridement in attempted. She has not had any associated fever or chills. 08/16/16 Seen by Benedict Orta PA-C. The patient reports stable drainage from her right leg ulcer in the past week. She reports a new ulcer on her left arm that began spontaneously and has been continuously present for 1 week. It started as a raised dry skin abnormality and evolved into an open ulcer that has been draining clear fluid. She has not had associated trauma to the area. 08/09/16 Seen by Benedict Orta PA-C. The patient reports stable drainage from her right lower leg ulcer since her last evaluation. 08/02/16. Seen by Dr. Marin. The patient reports minimal pain and drainage associated with the chronic right lower leg non-pressure ulcer since her last visit. 07/26/16 Seen by Benedict Orta PA-C. The patient reports stable drainage from her right lower leg ulcer since her last evaluation. 07/19/16 Seen by Benedict Orta PA-C. The patient reports continued drainage from her right lower leg ulcer with no fever or chills reported. 07/12/16. Seen by Dr. Marin. The patient reports decreased drainage and pain associated with the chronic right lower leg non-pressure ulcer since her last visit and in general feels it's much smaller than at time of her last visit. Following a course of cipro she continues to apply topical gentamicin ointment to treat the recent MRSA and Pseudomonas positive wound culture. 06/28/16 Seen by Benedict Orta PA-C. The patient reports that she was not able to tolerate her oral Cipro any better than the levaquin that gave her upper GI distress. She reports decreased drainage from her right lower leg ulcer. 06/22/16 Seen by Benedict Orta PA-C. The patient reports continued drainage from her right lower leg ulcer since her last evaluation. She has not had fever or chills. She has thrown up her levaquin on 2 occasions and kept it down for the other doses but did have nausea. 06/15/16. Seen by Dr. Marin. The patient is new to our clinic and presents with a right lower leg chronic, non-pressure ulcer that started as a trauma wound after hitting her leg on a piece of furniture about 2 months ago. She reports intermittent pain and persistent drainage despite treating Pseuodmona, Staph, and Strep that were cultured from the ulcer with oral antibiotics. She does not report fevers, increased leg swelling, or feeling unwell in general and does not have a history of diabetes or report symptoms consistent with clinically significant PAD. Past Medical History This information was obtained from the patient Patient has a medical history of: Arthritis Asthma Osteopenia Necrosis of left hip post pinning Chronic macrocytic anemia Gout Hypertension Hip Fracture Post traumatic osteoarthritis Hepatitis A MRSA Femer fractures Vitamin D deficiency Hyperlipidemia Complaints and Symptoms This information was obtained from the patient Patient complains of: General Notes: I have reviewed and concur with the Review of Systems and Past Family Social History documents completed by the clinician, I have reviewed and concur with the Wound Assessment document completed by the clinician Gastrointestinal (GI): Nausea / Vomiting Integumentary (Hair/Skin/Nails): Open Sore Prior Wound History: Bleeding, Drainage, Erythema, Pain Patient denies complaints or symptoms related to: Cardiovascular (Central): Irregular heart beat Cardiovascular (Central/Peripheral): Intermittent Claudication, Lower extremity (leg) resting pain, Lower extremity (leg) swelling Constitutional Symptoms (General Health): Chills, Fever Ear/Nose/Mouth/Throat: Hearing Loss / Aid Hematologic/Lymphatic: Bleeding / Clotting Disorders, Bleeding Tendency Musculoskeletal: Assistive Devices, Muscle Weakness Neurological: Loss of Protective Sensation Prior Wound History: Malodor Psychiatric: Depression, Memory Loss Respiratory: Oxygen Use, Shortness of Breath OBJECTIVE Constitutional BP elevated; Afebrile; Alert and in no distress. Well developed. Alert. Clean appearing.. Height/Length: 66 in (167.64 cm), Weight: 126.1 lbs (57.32 kgs), BMI: 20.4, Temperature: 98.3 ?F (36.83 ?C), Pulse: 70 bpm, Respiratory Rate: 18 breaths/min, Blood Pressure: 158/92 mmHg, Pulse Oximetry: 95 %. Respiratory: No respiratory distress. Even respirations and without use of accessory muscles.. Cardiovascular: 1+ left lower extremity edema. Integumentary (Hair, Skin) Mild periwound erythema without warmth. Refer to appropriate clinician wound documentation for this visit. Wound #5 Left, Distal, Anterior Leg is a chronic Partial Thickness Atypical and has received a status of Not Healed. Subsequent wound encounter measurements are 0.1cm length x 0.1cm width x 0.1cm depth, with an area of 0.01 sq cm and a volume of 0.001 cubic cm. No tunneling has been noted. No sinus tract has been noted. No undermining has been noted. There is a scant amount of serous drainage noted which has no odor. The patient reports a wound pain of level 0/10. The wound margin is attached. Wound bed has Yes epithelialization, No eschar, No slough, No granulation. The periwound skin texture is normal. The periwound skin moisture is normal. The periwound skin color is normal. The temperature of the periwound skin is WNL. Periwound skin presents with s/s of infection. Confirmation Description and Treatment Plan is: Systemic Antibiotics Prescribed. Local Pulse is Palpable. Wound #6 Left, Proximal, Anterior Leg is a chronic Partial Thickness Atypical and has received a status of Not Healed. Subsequent wound encounter measurements are 0.1cm length x 0.1cm width x 0.1cm depth, with an area of 0.01 sq cm and a volume of 0.001 cubic cm. No tunneling has been noted. No sinus tract has been noted. No undermining has been noted. There is a scant amount of serous drainage noted which has no odor. The patient reports a wound pain of level 0/10. The wound margin is attached. Wound bed has Yes epithelialization, No eschar, No slough, No granulation. The periwound skin texture is normal. The periwound skin color is normal. The periwound skin exhibited: Dry/Scaly. The periwound skin did not exhibit: Moist, Maceration. The temperature of the periwound skin is WNL. Periwound skin does not exhibit signs or symptoms of infection. Local Pulse is Palpable. Neurological: Cranial nerves grossly intact with symmetric function normal by informal observation.. ASSESSMENT Active Problems ICD-10 (Encounter Diagnosis) L97.821 - Non-pressure chronic ulcer of other part of left lower leg limited to breakdown of skin (Encounter Diagnosis) I87.312 - Chronic venous hypertension (idiopathic) with ulcer of left lower extremity (Encounter Diagnosis) L03.116 - Cellulitis of left lower limb PROCEDURES Wound #6 Wound #6 (Atypical) is located on the left, proximal, anterior leg. A selective debridement with a total area debrided of 0.01 sq cm was performed by Yuri Marin MD. Dermis was removed along with devitalized tissue: dried drainage. The following instrument( s) were used: curette. Pain control was achieved using 4% Lido. A time out was conducted prior to the start of the procedure. No bleeding occurred. The procedure was tolerated well with a pain level of 0 throughout and a pain level of 0 following the procedure. Post Debridement Measurements: 0.1cm length x 0.1cm width x 0.1cm depth; with an area of 0.01 sq cm and a volume of 0.001 cubic cm; PLAN Wound Orders: Wound #5 Left, Distal, Anterior Leg Anesthetic Topical Xylocaine to wound bed. - In clinic only Cleanser Cleanse Wound: - Normal Saline or distilled water May Shower. - But keep wounds and dressings dry Dressings Pack wound: - Triple Antibiotic to wound bed. Primary dressing: - Allevyn Life and Allevyn gentle border foam Follow-Up Appointments Return Appointment: - - One week Wound #6 Left, Proximal, Anterior Leg Anesthetic Topical Xylocaine to wound bed. - In clinic only Cleanser Cleanse Wound: - Normal Saline or distilled water May Shower. - But keep wounds and dressings dry Dressings Pack wound: - Triple Antibiotic to wound bed. 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 I've reviewed the clinician's documentation and agree with the evaluation and plan as written. In addition, the patient's ulcer demonstrates evidence of non-viable devitalized tissue which will continue to benefit from sharp debridement to help promote granulation and expedite healing. Also, the patient's left lower leg cellulitis is improving and I'll continue her on another 7 days of Augmentin. Electronic Signature(s) Signed By: Date: Yuri Marin MD 06/02/2018 11:44:00 Entered By: Yuri Marin on 06/02/2018 11:14:26
== END ==
PROVIDERS: PCP Family Medicine; Visit Provider Internal Medicine
DX: L97.821 Non-pressure chronic ulcer of other part of left lower leg limited to breakdown of skin (principal); I87.312 Chronic venous hypertension (idiopathic) with ulcer of left lower extremity; L03.116 Cellulitis of left lower limb
CPT/HCPCS: 97597

== ENCOUNTER → 2018-06-15 13:10 | Outpatient (CLI) | payer MEDICARE, OTHER, SELFPAY | PROVIDERS: PCP Family Medicine; Visit Provider Family Medicine | DX: I87.312 Chronic venous hypertension (idiopathic) with ulcer of left lower extremity (principal); L97.821 Non-pressure chronic ulcer of other part of left lower leg limited to breakdown of skin | CPT/HCPCS: 93922; 97597; 99213 ==

== ENCOUNTER → 2018-06-26 13:37 | Outpatient (CLI) | payer MEDICARE, OTHER, SELFPAY | PROVIDERS: PCP Family Medicine; Visit Provider Family Medicine | DX: Z48.817 Encounter for surgical aftercare following surgery on the skin and subcutaneous tissue (principal); I87.2 Venous insufficiency (chronic) (peripheral) | CPT/HCPCS: 99212 ==

== ENCOUNTER → 2018-07-19 12:57 | Outpatient (CLI) | payer MEDICARE, OTHER, SELFPAY ==
--- NOTE | 2018-07-19 | DI.US.S_ITS ---
PROCEDURE: US VENOUS INSUFFICIENCY LTD INDICATIONS: VENOUS REFLUX TECHNIQUE: Real time scanning was performed of the lower extremity venous system, with imaging documentation, as well as Color and pulse Doppler interrogation. COMPARISON: None. FINDINGS: LEFT LOWER EXTREMITY: The deep veins are normally compressible, and free of intraluminal thrombus. Color and pulse Doppler demonstrate normal intravascular flow. There is normal augmentation with distal compression maneuver. Greater saphenous vein (GSV): Normally 4 mm or less in diameter, with any reflux less than 0.5 seconds. No reflux. Anterior accessory GSV (AAGSV): No reflux. Small saphenous vein (SSV): Not assessed. [employer] veins: 2 mm left [employer]. IMPRESSION: 1. No reflux. 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 Dictated by: Conner SINGH Interpreted: Adri Mayo MD on 07/19/2018 at 14:32 Approved by: Adri Mayo M.D. on 07/19/2018 at 15:39
== END ==
PROVIDERS: PCP Family Medicine; Visit Provider Family Medicine
DX: I87.2 Venous insufficiency (chronic) (peripheral) (principal); I83.92 Asymptomatic varicose veins of left lower extremity
CPT/HCPCS: 93971